=== PATIENT | female | born 1975 | race Caucasian/White ===

== ENCOUNTER 2018-09-12 20:32 | Emergency (ER) | payer BC ==
[2018-09-13] MEDS: SOD CHLORIDE 0.9% 1,000 ML IV (00:37)
[2018-09-13 00:44] LABS: URINE BLOOD (Dip) POC Negative (NEGATIVE); URINE GLUCOSE (Dip) POC Negative (NEGATIVE); URINE KETONES (Dip) POC Negative (NEGATIVE); URINE LEUKOCYTE EST (Dip) POC Negative (NEGATIVE); URINE NITRITE (Dip) POC Negative (NEGATIVE); URINE TOTAL PROTEIN POC Trace (NEGATIVE)
[2018-09-13] MEDS: METOCLOPRAMIDE 10 MG INJ IV (00:44)
[2018-09-13] MEDS: KETOROLAC 30 MG INJ IV (00:44)
[2018-09-13] MEDS: LORAZEPAM 2 MG INJ IV (00:44)
== END 2018-09-13 02:34 | disposition home or self-care (01) ==
LOC: FTE 09-13 02:34
DX: G43.909 Migraine, unspecified, not intractable, without status migrainosus (principal); F17.210 Nicotine dependence, cigarettes, uncomplicated; R40.2142 Coma scale, eyes open, spontaneous, at arrival to emergency department; R40.2362 Coma scale, best motor response, obeys commands, at arrival to emergency department; R40.2252 Coma scale, best verbal response, oriented, at arrival to emergency department
CPT/HCPCS: 81003; 81025; 96374; 96375; 99284-25